=== PATIENT | female | born 1945 | race Caucasian/White ===

== ENCOUNTER → 2016-09-01 | Day surgery (SDC) | payer MEDICARE, BC ==
[~2016-09-01] MED LIST: ALLEGRA ALLERG180 MG PO; ASPIRIN PO; ASPIRIN81 M2 PO; CENESTIN0.45 MG PO; COUMADIN5 MG; CRESTOR PO; EC-NAPROSYN500 MG PO; FISH OIL 1,0001 CAP PO; HYDROCHLOROTHIA25 MG PO; IMDUR-ER60 M2; ISMO20 MG PO; LOVENOX100 MG/1 M; MAGNESIUM; METOPROLOL SUCC25 MG PO; PANTOPRAZOLE SO40 MG PO; PLACEBO #001 EACH PO; PRAVASTATIN SOD10 MG PO; PROTONIX PO; REQUIP1 MG PO; REQUIP3 MG PO; TOPROL XL PO; ZETIA PO; [UNRECOGNIZED DRUG - OTHER]; [UNRECOGNIZED DRUG - OTHER] PO
--- NOTE | ~2016-09-01 | OR ---
Unit #: [id number] #: [id number] Patient: DAYANA CASPER [id number] [address] [place], [place] [address] [id number] MR#: [id number] NAME: DAYANA CASPER ROOM: Date of Procedure: 09/01/2016 Admission Date: 09/01/2016 Surgeon: Dinesh Goodwin M.D. : 1945 Attending Physician: Dinesh Goodwin M.D. Primary Care Physician: Naa Bennett M.D. OPERATIVE REPORT PREOPERATIVE DIAGNOSES The patient presented with a history noncardiac chest pain as well as postprandial dyspepsia and gastroesophageal reflux. In addition, she needs a colorectal cancer screening. PROCEDURES PERFORMED Upper gastrointestinal endoscopy and biopsy as well as colonoscopy up to cecum and terminal ileum with excellent preparation and good visualization. POSTOPERATIVE DIAGNOSES For upper endoscopy: 1. Mild grade 1 distal erosive esophagitis. 2. Mild prepyloric antral diffuse gastritis. 3. Rest of the examination up to third part of duodenum normal. A biopsy was obtained from the antrum for CLOtest. For colonoscopy: Scant sigmoid and descending colon diverticulosis. Otherwise, normal examination up to cecum and terminal ileum with excellent preparation and good visualization. RECOMMENDATIONS 1. Pantoprazole 40 mg p.o. daily. 2. The patient will be followed up in the office in 8 to 10 weeks' time. 3. She does not need a repeat colonoscopy in the future. SEDATION USED MAC. DESCRIPTION OF PROCEDURE Following detailed explanation of potential risks and complications of an upper endoscopy and a colonoscopy, namely perforation, bleeding, and complication related to sedation, the patient was brought to GI lab and laid in the left lateral decubitus position. Lubricated tip of the Olympus video upper endoscope was passed through the bite block into the proximal esophagus under direct vision. The entire esophageal mucosa was examined and the patient was noted to have grade 1 distal erosive esophagitis. The scope was then advanced into the gastric cavity and the latter was insufflated. Mucosa of the fundus, body, and antrum was examined. Mild diffuse prepyloric antral erythema was noted indicating antral gastritis. Pylorus was intubated with visualization of the normal duodenal bulb and second and third part of the duodenum. Upon withdrawal and retroflexion; incisura, cardia, and greater curve was examined and biopsy was obtained from the antrum for CLOtest. The scope was then Unit #: [id number] #: [id number] Patient: DAYANA CASPER withdrawn in the distal esophagus. The entire esophageal mucosa was examined all the way up to pharynx. No additional findings were noted. The examination table was then turned by 180 degrees and the patient was positioned for a colonoscopy. A digital rectal examination was performed, which was normal. Lubricated tip of the Olympus video colonoscope was inserted through the anus and advanced under direct vision. The scope was advanced past rectosigmoid into descending colon. Scant small diverticula were seen in this area. The scope tip was then navigated all the way up to cecum with visualization of the ileocecal valve and the appendiceal orifice. Preparation was excellent with good visualization and photodocumentation was obtained. Last several inches of terminal ileum were also visualized after intubation of the ileocecal valve and appeared normal. Successive segments of the colonic mucosa were examined upon withdrawal and appeared unremarkable. There being no polyps, mass lesions, or AVMs. Other than the scant diverticula seen on the left side, no other abnormalities were noted. The scope was then withdrawn and the patient returned to the recovery area. She tolerated the procedure without any postprocedure complications. Dictated by... Dony Flores/poli TD: 09/04/2016 20:28 JOB #: [id number] OPERATIVE REPORT Page 1 of 1 X Dinesh Goodwin MD X PROCEDURE OPERATIVE NOTE
== END | disposition home or self-care (01) ==
LOC: COPS 07:38
DX: Z12.11 Encounter for screening for malignant neoplasm of colon (principal); K57.30 Diverticulosis of large intestine without perforation or abscess without bleeding; K22.10 Ulcer of esophagus without bleeding; K29.70 Gastritis, unspecified, without bleeding; K21.0 Gastro-esophageal reflux disease with esophagitis; E11.9 Type 2 diabetes mellitus without complications; I10 Essential (primary) hypertension; I48.91 Unspecified atrial fibrillation; I25.119 Atherosclerotic heart disease of native coronary artery with unspecified angina pectoris; M19.90 Unspecified osteoarthritis, unspecified site; Z95.5 Presence of coronary angioplasty implant and graft; Z90.710 Acquired absence of both cervix and uterus; Z98.51 Tubal ligation status; Z96.641 Presence of right artificial hip joint; Z98.890 Other specified postprocedural states; Z88.2 Allergy status to sulfonamides; Z79.01 Long term (current) use of anticoagulants; Z79.899 Other long term (current) drug therapy; Z79.82 Long term (current) use of aspirin; Z87.440 Personal history of urinary (tract) infections; Z88.0 Allergy status to penicillin
CPT/HCPCS: 43239; G0121; 82947; 87077